=== PATIENT | female | born 1965 | race Caucasian/White ===

== ENCOUNTER → 2016-09-12 | Outpatient (REF) | payer BC ==
[~2016-09-12] MED LIST: BUPR75TA5 PO; CRES40TA PO; LEVO200T4 PO; WELC625T PO; venlafaxine OR
== END ==
LOC: M LAB REF 16:39
PROVIDERS: ATTEND Internal Medicine
DX: R50.9 Fever, unspecified (principal); J06.9 Acute upper respiratory infection, unspecified

== ENCOUNTER → 2016-10-19 | Outpatient (REF) | payer BC | LOC: M SFHCLERA 14:27 | PROVIDERS: ATTEND Physician Assistant | DX: R31.9 Hematuria, unspecified (principal) ==

== ENCOUNTER 2018-01-10 12:15 | Observation (INO) | payer BC ==
[2018-01-10 12:46] LABS: BASO # 0.1 10^3/uL (0.0-0.2); BASO % 0.7 % (0.0-1.0); EOS # 0.3 10^3/uL (0.0-0.50); EOS % 3.2 % (0.0-3.0); HEMATOCRIT 37.9 % (36.0-47.0); HEMOGLOBIN 12.9 g/dl (12.0-15.5); IMMATURE GRANULOCYTE % 0.2 % (0-3.0); LYMPH # 1.8 10^3/uL (1.5-4.5); LYMPH % 21.8 % (24.0-44.0); MEAN CORPUSCULAR HEMOGLOBIN 31.5 pg (27.0-33.0); MEAN CORPUSCULAR VOLUME 92.7 fl (80.0-96.0); MONO # 0.7 10^3/uL (0.0-0.8); MONO % 8.2 % (0.0-5.0); NEUTROPHILS # 5.3 10^3/uL (1.8-7.7); NEUTROPHILS % 65.9 % (36.0-66.0); PLATELET COUNT, AUTOMATED 206 10^3/uL (150-450); RED BLOOD COUNT 4.09 10^6/uL (4.00-5.40); RED CELL DISTRIBUTION WIDTH 12.8 % (11.5-14.5)
[2018-01-10] MEDS: ASPIRIN 81 MG CHEW TABLET PO (12:57)
[2018-01-10 12:58] LABS: PROTHROMBIN TIME 12.2 SECONDS (12.4-14.5)
[2018-01-10] MEDS: NITROGLYCERIN 0.4 MG SUBL TABLET SL (12:58)
[2018-01-10 12:59] LABS: PARTIAL THROMBOPLASTIN TIME 37.1 SECONDS (26.8-37.9)
[2018-01-10 13:06] LABS: ANION GAP 7 MEQ/L (8-16); BLOOD UREA NITROGEN 8 MG/DL (7-18); CALCIUM LEVEL 8.8 MG/DL (8.5-10.1); CARBON DIOXIDE LEVEL 28 MEQ/L (21-32); CHLORIDE LEVEL 109 MEQ/L (98-107); CPK CREATINE PHOSPHOKINASE 151 U/L (26-192); CREATININE FOR GFR 0.92 MG/DL (0.55-1.30); GLOMERULAR FILTRATION RATE > 60.0 (>51); GLUCOSE, FASTING 71 MG/DL (70-100); SODIUM LEVEL 144 MEQ/L (136-145); TROPONIN I < 0.02 NG/ML (< 0.10)
[2018-01-10] MEDS: NS 500 ML IV (13:11)
[2018-01-10 13:18] LABS: ALBUMIN 3.7 GM/DL (3.2-5.2); ALBUMIN/GLOBULIN RATIO 1.03 (1.00-1.93); ALKALINE PHOSPHATASE 87 U/L (45-117); ALT/SGPT 30 U/L (12-78); AST/SGOT 20 U/L (7-37); BILIRUBIN,DIRECT < 0.1 MG/DL (0.0-0.2); BILIRUBIN,TOTAL 0.2 MG/DL (0.2-1.0); CK-MB VALUE MASS 1.9 NG/ML (<3.6); LIPASE 141 U/L (73-393); MB/CK RELATIVE INDEX 1.25 (< OR =4); TOTAL PROTEIN 7.3 GM/DL (6.4-8.2)
[2018-01-10] MEDS ORDERED: ISOVUE-370 76% 100ML VIAL (Q9967) As Ordered (13:39)
[2018-01-10] MEDS: LORazepam 2 MG/ML VIAL (J2060) IV (15:55)
[2018-01-10] MEDS: GABAPENTIN 300 MG CAP PO ×2 (16:00→21:01)
[2018-01-10 16:27] LABS: CHOLESTEROL LEVEL 199 MG/DL (<200); CHOLESTEROL RISK RATIO 4.061 (<5); HDL CHOLESTEROL 49 MG/DL (>40); LDL CHOLESTEROL 108.8 MG/DL (<100); NON-HDL-C 150 MG/DL; TRIGLYCERIDES LEVEL 206 MG/DL (<150)
[2018-01-10 16:30] LABS: ESTIMATED AVERAGE GLUCOSE 114 MG/DL (60-110); HEMOGLOBIN A1c 5.6 %
[2018-01-10] MEDS: ACETAMINOPHEN 500 MG TAB PO (20:01)
[2018-01-10 20:18] LABS: TROPONIN I < 0.02 NG/ML (< 0.10)
[2018-01-10] MEDS: ROSUVASTATIN 10 MG TAB (CRESTOR) PO (21:01)
[2018-01-10] MEDS: HEPARIN SOD (PORCINE) 5000 UNITS/ML VIAL SC (21:01)
[2018-01-11 00:44] LABS: TROPONIN I < 0.02 NG/ML (< 0.10)
[2018-01-11] MEDS: ONDANSETRON 4MG/2ML VIAL (J2405) IV (01:44)
[2018-01-11] MEDS: LEVOTHYROXINE 125MCG TABLET (0.125MG) PO (06:13)
[2018-01-11] MEDS: HEPARIN SOD (PORCINE) 5000 UNITS/ML VIAL SC (06:13)
[2018-01-11] MEDS: SUMAtriptan SUCCINATE 25 MG TAB PO (06:13)
[2018-01-11] MEDS: LEVOTHYROXINE 50MCG TABLET (0.05MG) PO (06:13)
[2018-01-11 06:25] LABS: BASO # 0.1 10^3/uL (0.0-0.2); BASO % 0.9 % (0.0-1.0); EOS # 0.3 10^3/uL (0.0-0.50); EOS % 5.4 % (0.0-3.0); HEMATOCRIT 35.4 % (36.0-47.0); HEMOGLOBIN 11.8 g/dl (12.0-15.5); IMMATURE GRANULOCYTE % 0.4 % (0-3.0); LYMPH # 1.7 10^3/uL (1.5-4.5); LYMPH % 31.9 % (24.0-44.0); MEAN CORPUSCULAR HEMOGLOBIN 31.7 pg (27.0-33.0); MEAN CORPUSCULAR HGB CONC 33.3 g/dl (32.0-36.5); MEAN CORPUSCULAR VOLUME 95.2 fl (80.0-96.0); MONO # 0.4 10^3/uL (0.0-0.8); MONO % 8.2 % (0.0-5.0); NEUTROPHILS # 2.9 10^3/uL (1.8-7.7); NEUTROPHILS % 53.2 % (36.0-66.0); PLATELET COUNT, AUTOMATED 171 10^3/uL (150-450); RED BLOOD COUNT 3.72 10^6/uL (4.00-5.40); RED CELL DISTRIBUTION WIDTH 12.9 % (11.5-14.5); WHITE BLOOD COUNT 5.4 10^3/uL (4.0-10.0)
[2018-01-11 06:45] LABS: ALBUMIN/GLOBULIN RATIO 0.83 (1.00-1.93); ALKALINE PHOSPHATASE 74 U/L (45-117); ALT/SGPT 24 U/L (12-78); ANION GAP 7 MEQ/L (8-16); AST/SGOT 16 U/L (7-37); BILIRUBIN,TOTAL 0.2 MG/DL (0.2-1.0); BLOOD UREA NITROGEN 8 MG/DL (7-18); CALCIUM LEVEL 7.7 MG/DL (8.5-10.1); CARBON DIOXIDE LEVEL 28 MEQ/L (21-32); CHLORIDE LEVEL 108 MEQ/L (98-107); CREATININE FOR GFR 0.84 MG/DL (0.55-1.30); GLOMERULAR FILTRATION RATE > 60.0 (>51); GLUCOSE, FASTING 111 MG/DL (70-100); MAGNESIUM LEVEL 2.1 MG/DL (1.8-2.4); POTASSIUM SERUM 3.8 MEQ/L (3.5-5.1); SODIUM LEVEL 143 MEQ/L (136-145); TOTAL PROTEIN 6.6 GM/DL (6.4-8.2)
[2018-01-11] MEDS: MULTIVITAMINS/MINERALS THERAP 1 TAB PO (08:46)
[2018-01-11] MEDS: PANTOPRAZOLE 40MG TAB (PROTONIX) PO (08:46)
[2018-01-11] MEDS: MAGNESIUM OXIDE 400 MG TAB (MAG-OX) PO (08:46)
[2018-01-11] MEDS: COLESEVELAM 625 MG TAB (WELCHOL) PO (08:46)
[2018-01-11] MEDS: VENLAFAXINE **XR** 75MG CAPSULE PO (08:47)
[2018-01-11] MEDS: ACETAMINOPHEN 500 MG TAB PO (08:47)
[2018-01-11] MEDS: VITAMIN D 1,000 INTERNATIONAL UNITS TABLET PO (08:48)
[2018-01-11] MEDS: GABAPENTIN 300 MG CAP PO (08:48)
[2018-01-11] MEDS: buPROPion **XL** TABLET 150MG (WELLBUTRIN XL) PO (08:48)
== END 2018-01-11 11:24 | disposition home or self-care (01) ==
LOC: M ED 12:15 → M ED INP 15:53 → M MSPAV 18:21
PROVIDERS: Internal Medicine
DX: K21.9 Gastro-esophageal reflux disease without esophagitis (principal); R07.9 Chest pain, unspecified; G90.09 Other idiopathic peripheral autonomic neuropathy; M54.81 Occipital neuralgia; M54.2 Cervicalgia; E78.4 Other hyperlipidemia; F32.9 Major depressive disorder, single episode, unspecified; E03.9 Hypothyroidism, unspecified; M25.511 Pain in right shoulder; Z79.899 Other long term (current) drug therapy; Z88.8 Allergy status to other drugs, medicaments and biological substances; F17.210 Nicotine dependence, cigarettes, uncomplicated; F41.9 Anxiety disorder, unspecified
CPT/HCPCS: J2405

== ENCOUNTER → 2018-01-23 | Outpatient (CLI) | payer BC | LOC: M PAIN 13:00 | DX: Z53.8 Procedure and treatment not carried out for other reasons (principal) ==

== ENCOUNTER → 2018-02-05 | Outpatient (CLI) | payer BC ==
[~2018-02-05] MED LIST changes: -BUPR75TA5 PO; -CRES40TA PO; -LEVO200T4 PO; +LIDOCAINE 1% SDV INJ 30 ML VIAL As Ordered; +MIDAZOLAM INJ 2 MG/2 ML VIAL (J2250) As Ordered; -WELC625T PO; +fentaNYL 100 MCG/2 ML INJECTION (J3010) As Ordered; -venlafaxine OR
[2018-02-05 15:25] LABS: CSF RBC < 2 10^3/uL (<2)
[2018-02-05 15:26] LABS: APPEARANCE, CSF CLEAR (CLEAR); COLOR, CSF COLORLESS (COLORLESS); CSF DIFF IF INDICATED? NO (NO); CSF TUBE# CELL CNT TUBE 3; CSF WBC 7 /uL (0-10)
[2018-02-05 15:32] LABS: CSF TUBE# GLU TUBE 1; CSF TUBE# TP TUBE 1; GLUCOSE CSF 55 MG/DL (40-75); TOTAL PROTEIN,CSF 34.7 MG/DL (15-45)
[2018-02-10 00:07] LABS: IMMUNOGLOBULIN G CSF 2.2 mg/dL (0.0-8.6)
== END ==
LOC: M PAIN 12:00
DX: G37.9 Demyelinating disease of central nervous system, unspecified (principal); E78.5 Hyperlipidemia, unspecified; F32.9 Major depressive disorder, single episode, unspecified; E03.9 Hypothyroidism, unspecified; G35 Multiple sclerosis; K21.9 Gastro-esophageal reflux disease without esophagitis; F17.210 Nicotine dependence, cigarettes, uncomplicated; Z79.899 Other long term (current) drug therapy
CPT/HCPCS: J2250

== ENCOUNTER → 2018-06-09 | Outpatient (REF) | payer BC ==
[2018-06-09 13:01] LABS: BACTERIA, URINE AUTO NEGATIVE (NEGATIVE); MUCUS, URINE SMALL (NEGATIVE); RBC, URINE AUTO 3 /HPF (0-3); SQUAMOUS EPITHELIAL CELL UR AU 0 /HPF (0-6); WBC, URINE AUTO 1 /HPF (0-3)
== END ==
LOC: M LAB REF 11:50
DX: R31.9 Hematuria, unspecified (principal)
CPT/HCPCS: 81015

== ENCOUNTER → 2018-06-16 | Outpatient (REF) | payer BC, OTHER ==
[2018-06-16 12:34] LABS: APPEARANCE, URINE CLEAR (CLEAR); BACTERIA, URINE AUTO NEGATIVE (NEGATIVE); BILIRUBIN, URINE AUTO NEGATIVE (NEGATIVE); BLOOD, URINE BLOOD 1+ (NEGATIVE); COLOR, URINE YELLOW (YELLOW); GLUCOSE, URINE (UA) AUTO NEGATIVE (NEGATIVE); KETONE, URINE AUTO NEGATIVE (NEGATIVE); LEUKOCYTE ESTERASE, URINE AUTO NEGATIVE (NEGATIVE); MUCUS, URINE SMALL (NEGATIVE); NITRITE, URINE AUTO NEGATIVE (NEGATIVE); PROTEIN, URINE AUTO NEGATIVE (NEGATIVE); RBC, URINE AUTO 1 /HPF (0-3); SPECIFIC GRAVITY URINE AUTO 1.008 (1.002-1.035); SQUAMOUS EPITHELIAL CELL UR AU 0 /HPF (0-6); UROBILINOGEN, URINE AUTO 0.2 mg/dL (0.0-2.0); WBC, URINE AUTO 0 /HPF (0-3)
== END ==
LOC: M LAB REF 12:00
DX: R31.9 Hematuria, unspecified (principal)
CPT/HCPCS: 81001

== ENCOUNTER → 2018-10-21 | Outpatient (REF) | payer MEDICAID, OTHER ==
[~2018-10-21] MED LIST changes: +B-2100TA PO; +BUPR1TAB53 PO; +BUPR75TA5 PO; +CITRTAB10 PO; +COLE625TAB PO; +CRES40TA PO; +EFFE150C2 PO; +GABA600T4 PO; +LEVO200T4 PO; -LIDOCAINE 1% SDV INJ 30 ML VIAL As Ordered; +MAGN400C PO; -MIDAZOLAM INJ 2 MG/2 ML VIAL (J2250) As Ordered; +PANT40TA3 PO; +SUMA25TA3 PO; +SYNT175T2 PO; +VITAD1000T PO; +VITMTA PO; -fentaNYL 100 MCG/2 ML INJECTION (J3010) As Ordered; +venlafaxine OR
[2018-10-21 18:02] LABS: INFLUENZA A AMPLIFICATION POSITIVE (NEGATIVE); INFLUENZA B AMPLIFICATION NEGATIVE (NEGATIVE)
[2018-10-22 10:28] LABS: RUBELLA IgG QUALITATIVE IMMUNE (IMMUNE)
[2018-10-23 08:06] LABS: RUBEOLA IgG ANTIBODY <25.0 AU/mL (Immune >29.9)
== END ==
LOC: M LAB REF 16:37
PROVIDERS: ATTEND Internal Medicine
DX: Z02.1 Encounter for pre-employment examination (principal); R05 Cough; N39.0 Urinary tract infection, site not specified

== ENCOUNTER → 2019-11-10 | Outpatient (REF) | payer OTHER ==
[~2019-11-10] MED LIST changes: +CHOL100029 PO; -VITAD1000T PO
== END ==
LOC: M LAB REF 17:01
PROVIDERS: ATTEND Internal Medicine
DX: R51 Headache (principal)

== ENCOUNTER → 2019-11-29 | Outpatient (REF) | payer OTHER | LOC: M LAB REF 12:35 | PROVIDERS: ATTEND Physician Assistant | DX: R30.0 Dysuria (principal) ==

== ENCOUNTER → 2019-11-30 | Outpatient (CLI) | payer OTHER ==
--- NOTE | 2019-11-30 15:11 | REP ---
Duplex extremity venous ultrasound: Left lower extremity. History: Pain in the left lower leg. Rule out DVT. Findings: The deep veins are anechoic and fully compressible from the groin to the popliteal fossa in the left lower extremity. Color flow imaging is homogeneous. Spectral Doppler interrogation demonstrates intact respiratory variation in flow and normal manual augmentation of flow. There is no evidence of deep vein thrombosis. Scanning in the area of the palpable abnormality in the left calf demonstrates a patent superficial system varicosities. Impression: Patent superficial varicosities in the left calf corresponding to the palpable area of concern. Otherwise negative left lower extremity duplex venous ultrasound. No evidence of deep vein thrombosis. Electronically Signed by Hayder Hahn MD 11/30/2019 03:03 P
== END ==
LOC: M RAD 14:20
PROVIDERS: ATTEND Physician Assistant
DX: M79.662 Pain in left lower leg (principal)

== ENCOUNTER → 2020-01-06 | Outpatient (REF) | payer OTHER ==
[~2020-01-06] MED LIST changes: +ACET160S3 PO; +ASPI81TA85 PO; +DEPA250T32 PO; +EZET10TA21 PO; +VITA500C24 PO
== END ==
LOC: M LAB REF 16:57
PROVIDERS: ATTEND Internal Medicine
DX: R51 Headache (principal)

== ENCOUNTER → 2020-01-18 | Outpatient (CLI) | payer OTHER | LOC: M LABSMTC 09:50 | PROVIDERS: ATTEND Anesthesiology | DX: Z01.818 Encounter for other preprocedural examination (principal); Z11.59 Encounter for screening for other viral diseases | CPT/HCPCS: C9803; U0003 ==

== ENCOUNTER 2020-01-21 07:25 | Day surgery (SDC) | payer OTHER ==
[~2020-01-21] VITALS: Ht 172.7 cm; Wt 47.6 kg
[~2020-01-21 07:25] MED LIST changes: -ASPI81TA85 PO; +ASPI81TA86 PO; +LIDOCAINE 2% MDV 20ML VIAL As Ordered ONE; +NS 1,000 ML IV ONE; +PANT40TA29 PO; -PANT40TA3 PO; +propofoL 200 MG/20 ML VIAL As Ordered ONE
[2020-01-21] MEDS ORDERED: fentaNYL 100 MCG/2 ML INJECTION (J3010) As Ordered ONE (08:49)
[2020-01-21] MEDS ORDERED: PHENYLephrine HCL 500 MCG/5 ML (100MCG/ML) SYRINGE (J2370) As Ordered ONE (09:13)
[2020-01-21] MEDS ORDERED: ePHEDrine SULFATE 25 MG/5 ML(5MG/ML) SYRINGE As Ordered ONE (09:13)
--- NOTE | 2020-01-21 10:02 | ROOR ---
Patient Name: Poncho Gomez Procedure Date: 01/21/2020 9:04 AM Date of : 1965 Age: 54 Room: [facility] Gender: Female Note Status: Finalized Procedure: Upper GI endoscopy Indications: Weight loss Providers: Curly Borrero MD Referring MD: Nat CHURCH MD Requesting Provider: Medicines: Monitored Anesthesia Care Complications: No immediate complications. Procedure: Pre-Anesthesia Assessment: - Prior to the procedure, a History and Physical was performed, and patient medications and allergies were reviewed. The patient is competent. The risks and benefits of the procedure and the sedation options and risks were discussed with the patient. All questions were answered and informed consent was obtained. Patient identification and proposed procedure were verified by the physician, the nurse and the spear fisher in the procedure room. Mental Status Examination: alert and oriented. Airway Examination: normal oropharyngeal airway and neck mobility. CV Examination: regular rate and rhythm. Prophylactic Antibiotics: The patient does not require prophylactic antibiotics. Prior Anticoagulants: The patient has taken no previous anticoagulant or antiplatelet agents. ASA Grade Assessment: II - A patient with mild systemic disease. After reviewing the risks and benefits, the patient was deemed in satisfactory condition to undergo the procedure. The anesthesia plan was to use monitored anesthesia care (MAC). Immediately prior to administration of medications, the patient was re-assessed for adequacy to receive sedatives. The heart rate, respiratory rate, oxygen saturations, blood pressure, adequacy of pulmonary ventilation, and response to care were monitored throughout the procedure. The physical status of the patient was re-assessed after the procedure. The Endoscope was introduced through the mouth, and advanced to the second part of duodenum. The upper GI endoscopy was accomplished without difficulty. The patient tolerated the procedure well. Findings: The examined esophagus was normal. The entire examined stomach was normal. The examined duodenum was normal. Impression: - Normal esophagus. - Normal stomach. - Normal examined duodenum. - No specimens collected. Recommendation: - Discharge patient to home. - Resume previous diet. - Continue present medications. Curly Borrero MD Curly Borrero MD 01/21/2020 10:01:53 AM Electronically signed by Curly Borrero MD Number of Addenda: 0 Note Initiated On: 01/21/2020 9:04 AM Estimated Blood Loss: Estimated blood loss: none.
--- NOTE | 2020-01-21 10:08 | ROOR ---
Patient Name: Poncho Gomez Procedure Date: 01/21/2020 9:05 AM Date of : 1965 Age: 54 Room: [facility] Gender: Female Note Status: Finalized Procedure: Colonoscopy Indications: Family history of colon cancer, Lower abdominal pain, Weight loss Providers: Curly Borrero MD Referring MD: Nat CHURCH MD Requesting Provider: Medicines: Monitored Anesthesia Care Complications: No immediate complications. Procedure: Pre-Anesthesia Assessment: - Prior to the procedure, a History and Physical was performed, and patient medications and allergies were reviewed. The patient is competent. The risks and benefits of the procedure and the sedation options and risks were discussed with the patient. All questions were answered and informed consent was obtained. Patient identification and proposed procedure were verified by the physician, the nurse and the client project coordinator in the procedure room. Mental Status Examination: alert and oriented. CV Examination: regular rate and rhythm. Prophylactic Antibiotics: The patient does not require prophylactic antibiotics. Prior Anticoagulants: The patient has taken no previous anticoagulant or antiplatelet agents. ASA Grade Assessment: II - A patient with mild systemic disease. After reviewing the risks and benefits, the patient was deemed in satisfactory condition to undergo the procedure. The anesthesia plan was to use monitored anesthesia care (MAC). Immediately prior to administration of medications, the patient was re-assessed for adequacy to receive sedatives. The heart rate, respiratory rate, oxygen saturations, blood pressure, adequacy of pulmonary ventilation, and response to care were monitored throughout the procedure. The physical status of the patient was re-assessed after the procedure. The Colonoscope was introduced through the anus and advanced to the cecum, identified by the appendiceal orifice. The colonoscopy was somewhat difficult due to a redundant colon. The patient tolerated the procedure well. The quality of the bowel preparation was excellent. Findings: The perianal and digital rectal examinations were normal. A 8 mm polyp was found at 25 cm proximal to the anus. The polyp was sessile. The polyp was removed with a hot snare. Resection and retrieval were complete. A few small-mouthed diverticula were found in the sigmoid colon. Impression: - One 8 mm polyp at 25 cm proximal to the anus, removed with a hot snare. Resected and retrieved. - Diverticulosis in the sigmoid colon. Recommendation: - Discharge patient to home. - Resume previous diet. - Continue present medications. - Await pathology results. - If the pathology report reveals adenomatous tissue, then repeat the colonoscopy for surveillance in 5 years. Curly Borrero MD Curly Borrero MD 01/21/2020 10:07:36 AM Electronically signed by Curly Borrero MD Number of Addenda: 0 Note Initiated On: 01/21/2020 9:05 AM Estimated Blood Loss: Estimated blood loss: none.
[2020-01-21 10:20] VITALS: BP 117/58
== END 2020-01-21 10:40 | disposition home or self-care (01) ==
LOC: M OPP 07:25
PROVIDERS: ATTEND Surgery
DX: Q43.8 Other specified congenital malformations of intestine (principal); K63.5 Polyp of colon; K57.30 Diverticulosis of large intestine without perforation or abscess without bleeding; R63.4 Abnormal weight loss; R10.30 Lower abdominal pain, unspecified; Z79.82 Long term (current) use of aspirin; Z79.899 Other long term (current) drug therapy; Z88.8 Allergy status to other drugs, medicaments and biological substances; Z87.891 Personal history of nicotine dependence
CPT/HCPCS: 43235; 45385; 88305; J2370; J3010

== ENCOUNTER → 2020-02-19 | Outpatient (CLI) | payer OTHER ==
[~2020-02-19] MED LIST changes: -LIDOCAINE 2% MDV 20ML VIAL As Ordered ONE; -NS 1,000 ML IV ONE; -propofoL 200 MG/20 ML VIAL As Ordered ONE
== END ==
LOC: M LABSMTC 11:30
PROVIDERS: ATTEND Orthopaedic Surgery
DX: Z11.59 Encounter for screening for other viral diseases (principal); Z20.828 Contact with and (suspected) exposure to other viral communicable diseases

== ENCOUNTER → 2020-05-04 | Outpatient (REF) | payer OTHER | LOC: M LAB REF 16:20 | PROVIDERS: ATTEND Internal Medicine | DX: Z47.89 Encounter for other orthopedic aftercare (principal) ==

== ENCOUNTER → 2020-07-08 | Outpatient (CLI) | payer OTHER | LOC: M LABSMTC 13:02 | PROVIDERS: ATTEND Family Medicine | DX: Z20.828 Contact with and (suspected) exposure to other viral communicable diseases (principal) ==

== ENCOUNTER → 2020-07-19 | Outpatient (CLI) | payer SELFPAY | LOC: M LABSMTC 12:28 | PROVIDERS: ATTEND Pediatrics | DX: Z20.828 Contact with and (suspected) exposure to other viral communicable diseases (principal) ==

== ENCOUNTER → 2020-08-15 | Outpatient (REF) | payer OTHER ==
[2020-08-16 13:52] LABS: PERCENT SATURATION 24.6 % (13.2-45.0)
== END ==
LOC: M LAB REF 12:32
PROVIDERS: ATTEND Internal Medicine
DX: D64.9 Anemia, unspecified (principal)

== ENCOUNTER → 2020-09-14 | Outpatient (CLI) | payer OTHER | LOC: M LABSMTC 13:35 | PROVIDERS: ATTEND Family Medicine | DX: Z11.52 Encounter for screening for COVID-19 (principal) ==

== ENCOUNTER → 2020-10-02 | Outpatient (REF) | payer OTHER | LOC: M LAB REF 18:46 | PROVIDERS: ATTEND Physician Assistant | DX: N39.0 Urinary tract infection, site not specified (principal) ==

== ENCOUNTER → 2020-11-16 | Outpatient (REF) | payer OTHER | LOC: M WUC 15:52 | PROVIDERS: ATTEND Physician Assistant | DX: N39.0 Urinary tract infection, site not specified (principal) ==

== ENCOUNTER → 2020-11-24 | Outpatient (REF) | payer OTHER | LOC: M LAB REF 15:42 | PROVIDERS: ATTEND Physician Assistant | DX: N39.0 Urinary tract infection, site not specified (principal) ==

== ENCOUNTER → 2020-12-13 | Outpatient (CLI) | payer OTHER ==
[~2020-12-13] MED LIST changes: +E-Z-GAS II EFFERVESCENT PACKET (SODIUM BICARB./CITRIC ACID/SIMETHICONE) As Ordered ONE; +E-Z-HD 98% w/w 340GM SUSP BTL As Ordered ONE; +E-Z-PAQUE 96% w/w SUSP 176GM BTL As Ordered ONE
--- NOTE | 2020-12-13 17:07 | REP ---
INDICATION: CHRONIC COUGH. COMPARISON: None TECHNIQUE: This procedure was performed by Rebekah Dickerson, [facility], under the direct supervision of Dr. Hahn. Images were reviewed with Dr. Hahn prior to dictation. Liquid barium and gas producing crystals were given in the erect position, as well as liquid barium in the prone oblique position in order to perform a double contrast esophagram examination. FINDINGS: A single view PA chest x-ray is submitted as a inner layer scrubber tender film. The superior mediastinal structures are midline. The heart size is within normal limits. The lungs are clear. The oral and pharyngeal stages of deglutition were unremarkable. Esophageal transport is prompt and efficient and there is no evidence of esophagitis, stricture, or mucosal ring. There is no evidence of a hiatal hernia. There was no gastroesophageal reflux noted . IMPRESSION: Unremarkable esophagram. 0.2 minutes of fluoroscopy time was utilized for this procedure. Some fluoroscopic images are performed with last image hold technology. These images require no additional radiation. <Electronically signed by Rebekah Dickerson > 12/13/20 1610 <Electronically signed by Dariel Hahn > 12/13/20 1706
== END ==
LOC: M RAD 10:22
PROVIDERS: ATTEND Specialist
DX: R05 Cough (principal)

== ENCOUNTER → 2020-12-20 | Outpatient (REF) | payer OTHER ==
[~2020-12-20] MED LIST changes: -E-Z-GAS II EFFERVESCENT PACKET (SODIUM BICARB./CITRIC ACID/SIMETHICONE) As Ordered ONE; -E-Z-HD 98% w/w 340GM SUSP BTL As Ordered ONE; -E-Z-PAQUE 96% w/w SUSP 176GM BTL As Ordered ONE
== END ==
LOC: M WUC 22:14
PROVIDERS: ATTEND Nurse Practitioner Family
DX: R30.0 Dysuria (principal)

== ENCOUNTER → 2021-02-14 | Outpatient (CLI) | payer OTHER ==
--- NOTE | 2021-02-14 14:25 | REP ---
INDICATION: FREQUENT UTI'S. COMPARISON: None. TECHNIQUE: Transvesical ultrasound FINDINGS: The pre void urinary bladder volume calculation is 945 cc and the postvoid urinary bladder volume calculation is 24 cc. This renders a 3% postvoid residual. No masses were identified. IMPRESSION: As above <Electronically signed by Pedro Biswas > 02/14/21 [id number]
--- NOTE | 2021-02-14 15:08 | REP ---
INDICATION: FREQUENT UTI'S. COMPARISON: None. FINDINGS: Multiple ultrasonographic images of the right kidney show the right kidney to measure 9.6 x 5.4 x 5.4 cm. The renal cortical echotexture is unremarkable. There are no masses. There is good corticomedullary differentiation. There is no hydronephrosis. There are no perinephric fluid collections. Multiple ultrasonographic images of the left kidney show the left kidney to measure 10.3 x 5 x 4.7 cm. The renal cortical echotexture is unremarkable. There are no masses. There is good corticomedullary differentiation. There is no hydronephrosis. There are no perinephric fluid collections. IMPRESSION: Unremarkable renal ultrasonography. <Electronically signed by Pedro Biswas > 02/14/21 1795
== END ==
LOC: M RAD 13:39
PROVIDERS: ATTEND Nurse Practitioner Family
DX: N39.0 Urinary tract infection, site not specified (principal)

== ENCOUNTER → 2021-02-21 | Outpatient (REF) | payer OTHER ==
[2021-02-21 20:27] LABS: APPEARANCE, URINE TURBID (CLEAR); BACTERIA, URINE AUTO 1+ (NEGATIVE); BILIRUBIN, URINE AUTO NEGATIVE (NEGATIVE); BLOOD, URINE BLOOD 2+ (NEGATIVE); COLOR, URINE AMBER (YELLOW); GLUCOSE, URINE (UA) AUTO NEGATIVE (NEGATIVE); KETONE, URINE AUTO NEGATIVE (NEGATIVE); LEUKOCYTE ESTERASE, URINE AUTO 3+ (NEGATIVE); MUCUS, URINE SMALL (NEGATIVE); NITRITE, URINE AUTO POSITIVE (NEGATIVE); PROTEIN, URINE AUTO 2+ mg/dL (NEGATIVE); RBC, URINE AUTO 33 /HPF (0-3); SPECIFIC GRAVITY URINE AUTO 1.018 (1.002-1.035); SQUAMOUS EPITHELIAL CELL UR AU 4 /HPF (0-6); UROBILINOGEN, URINE AUTO 0.2 mg/dL (0.0-2.0); WBC, URINE AUTO TNTC /HPF (0-3)
== END ==
LOC: M SMT 17:14
PROVIDERS: ATTEND Nurse Practitioner Family
DX: N39.0 Urinary tract infection, site not specified (principal)

== ENCOUNTER → 2021-02-27 | Outpatient (REF) | payer OTHER ==
[2021-02-27 15:48] LABS: PERCENT SATURATION 33.8 % (13.2-45.0)
== END ==
LOC: M LAB REF 15:03
PROVIDERS: ATTEND Internal Medicine
DX: D64.9 Anemia, unspecified (principal)

== ENCOUNTER → 2021-03-14 | Outpatient (REF) | payer OTHER | LOC: M SMT 12:57 | PROVIDERS: ATTEND Urology | DX: Z87.440 Personal history of urinary (tract) infections (principal); Z09 Encounter for follow-up examination after completed treatment for conditions other than malignant neoplasm ==

== ENCOUNTER → 2021-10-04 | Outpatient (REF) | payer OTHER ==
[2021-10-04 13:51] LABS: APPEARANCE, URINE HAZY (CLEAR); BACTERIA, URINE AUTO 1+ (NEGATIVE); BILIRUBIN, URINE AUTO NEGATIVE (NEGATIVE); BLOOD, URINE BLOOD NEGATIVE (NEGATIVE); COLOR, URINE YELLOW (YELLOW); GLUCOSE, URINE (UA) AUTO NEGATIVE (NEGATIVE); KETONE, URINE AUTO NEGATIVE (NEGATIVE); LEUKOCYTE ESTERASE, URINE AUTO 3+ (NEGATIVE); MUCUS, URINE SMALL (NEGATIVE); NITRITE, URINE AUTO NEGATIVE (NEGATIVE); PROTEIN, URINE AUTO NEGATIVE (NEGATIVE); RBC, URINE AUTO 13 /HPF (0-3); SPECIFIC GRAVITY URINE AUTO 1.009 (1.002-1.035); SQUAMOUS EPITHELIAL CELL UR AU 0 /HPF (0-6); UROBILINOGEN, URINE AUTO 0.2 mg/dL (0.0-2.0); WBC, URINE AUTO 80 /HPF (0-3)
== END ==
LOC: M SMT 12:50
PROVIDERS: ATTEND Urology
DX: N39.0 Urinary tract infection, site not specified (principal)

== ENCOUNTER 2021-11-19 14:50 | Emergency (ER) | payer OTHER, MEDICAID ==
[~2021-11-19] VITALS: Ht 172.7 cm; Wt 55.6 kg
[2021-11-19] MEDS ORDERED: IBUP200T46 PO (15:01)
[2021-11-19] MEDS ORDERED: BOOSTRIX/ADACEL VACCINE (DIPHTH/PERTUSS/ACELL/TETANUS) 0.5ML SYR IM ONE (17:05)
[2021-11-19] MEDS ORDERED: KETOROLAC TROMETHAMINE 10 MG TAB PO ONE (17:05)
[2021-11-19 17:35] VITALS: BP 139/68
== END 2021-11-19 17:53 | disposition home or self-care (01) ==
LOC: M ED 14:50
DX: S01.01XA Laceration without foreign body of scalp, initial encounter (principal); W22.8XXA Striking against or struck by other objects, initial encounter; Y92.9 Unspecified place or not applicable; Y93.9 Activity, unspecified; Y99.0 Civilian activity done for income or pay; I67.9 Cerebrovascular disease, unspecified; I10 Essential (primary) hypertension; E78.5 Hyperlipidemia, unspecified; G43.909 Migraine, unspecified, not intractable, without status migrainosus; G47.33 Obstructive sleep apnea (adult) (pediatric); E03.9 Hypothyroidism, unspecified; F41.9 Anxiety disorder, unspecified; F32.A Depression, unspecified; Z88.8 Allergy status to other drugs, medicaments and biological substances; Z79.899 Other long term (current) drug therapy; Z79.890 Hormone replacement therapy; Z23 Encounter for immunization

== ENCOUNTER → 2022-01-01 | Outpatient (CLI) | payer OTHER ==
[~2022-01-01] MED LIST changes: +IBUP200T46 PO
== END ==
LOC: M WUC 13:22
PROVIDERS: ATTEND Internal Medicine
DX: M79.642 Pain in left hand (principal); M19.031 Primary osteoarthritis, right wrist; M19.041 Primary osteoarthritis, right hand

== ENCOUNTER → 2022-01-03 | Outpatient (REF) | payer OTHER ==
[2022-01-03 13:45] LABS: APPEARANCE, URINE HAZY (CLEAR); BACTERIA, URINE AUTO NEGATIVE (NEGATIVE); BILIRUBIN, URINE AUTO NEGATIVE (NEGATIVE); BLOOD, URINE BLOOD NEGATIVE (NEGATIVE); COLOR, URINE AMBER (YELLOW); GLUCOSE, URINE (UA) AUTO NEGATIVE (NEGATIVE); KETONE, URINE AUTO NEGATIVE (NEGATIVE); LEUKOCYTE ESTERASE, URINE AUTO NEGATIVE (NEGATIVE); MUCUS, URINE SMALL (NEGATIVE); NITRITE, URINE AUTO NEGATIVE (NEGATIVE); PROTEIN, URINE AUTO NEGATIVE (NEGATIVE); RBC, URINE AUTO 1 /HPF (0-3); SPECIFIC GRAVITY URINE AUTO 1.019 (1.002-1.035); SQUAMOUS EPITHELIAL CELL UR AU 1 /HPF (0-6); UROBILINOGEN, URINE AUTO 0.2 mg/dL (0.0-2.0); WBC, URINE AUTO 1 /HPF (0-3)
== END ==
LOC: M SMT 12:42
PROVIDERS: ATTEND Urology
DX: Z87.440 Personal history of urinary (tract) infections (principal)

== ENCOUNTER → 2022-10-05 | Outpatient (REF) | payer OTHER, MEDICAID ==
[~2022-10-05] MED LIST changes: +COLE625T17 PO; -COLE625TAB PO
[2022-10-05 13:51] LABS: APPEARANCE, URINE HAZY (CLEAR); BACTERIA, URINE AUTO 1+ (NEGATIVE); BILIRUBIN, URINE AUTO NEGATIVE (NEGATIVE); BLOOD, URINE BLOOD NEGATIVE (NEGATIVE); COLOR, URINE YELLOW (YELLOW); GLUCOSE, URINE (UA) AUTO NEGATIVE (NEGATIVE); KETONE, URINE AUTO NEGATIVE (NEGATIVE); LEUKOCYTE ESTERASE, URINE AUTO 2+ (NEGATIVE); MUCUS, URINE SMALL (NEGATIVE); NITRITE, URINE AUTO NEGATIVE (NEGATIVE); PROTEIN, URINE AUTO NEGATIVE (NEGATIVE); RBC, URINE AUTO 6 /HPF (0-3); SPECIFIC GRAVITY URINE AUTO 1.023 (1.002-1.035); SQUAMOUS EPITHELIAL CELL UR AU 1 /HPF (0-6); UROBILINOGEN, URINE AUTO 0.2 mg/dL (0.0-2.0); WBC, URINE AUTO 27 /HPF (0-3)
== END ==
LOC: M SMT 13:01
PROVIDERS: ATTEND Urology
DX: Z87.440 Personal history of urinary (tract) infections (principal)

== ENCOUNTER → 2022-12-14 | Outpatient (REF) | payer MEDICAID ==
[2022-12-14 17:47] LABS: BASO # 0.1 10^3/uL (0.0-0.2); EOS # 0.2 10^3/uL (0.0-0.5); EOS % 4.1 % (0.0-3.0); HEMATOCRIT 37.2 % (36.0-47.0); HEMOGLOBIN 11.7 g/dl (12.0-15.5); LYMPH # 1.3 10^3/uL (1.5-5.0); LYMPH % 25.1 % (24.0-44.0); MEAN CORPUSCULAR HEMOGLOBIN 31.2 pg (27.0-33.0); MEAN CORPUSCULAR HGB CONC 31.5 g/dl (32.0-36.5); MEAN CORPUSCULAR VOLUME 99.2 fl (80.0-96.0); MONO # 0.5 10^3/uL (0.0-0.8); MONO % 10.2 % (2.0-8.0); NEUTROPHILS % 59.4 % (36.0-66.0); PLATELET COUNT, AUTOMATED 163 10^3/uL (150-450); RED BLOOD COUNT 3.75 10^6/uL (4.00-5.40); WHITE BLOOD COUNT 5.1 10^3/uL (4.0-10.0)
[2022-12-14 17:58] LABS: ERYTHROCYTE SEDIMENTATION RATE 10 mm/hr (0-30)
[2022-12-14 18:10] LABS: URIC ACID 4.2 MG/DL (3.1-7.8)
[2022-12-14 18:11] LABS: C REACTIVE PROTEIN QUANTITATIV < 0.40 MG/DL (<1.0)
[2022-12-14 18:13] LABS: RHEUMATOID FACTOR QUANT < 3.5 IU/ML (<14)
[2022-12-18 14:07] LABS: ANTINUCLEAR ANTIBODIES DIRECT Negative (Negative)
== END ==
LOC: M LAB REF 16:37
PROVIDERS: ATTEND Internal Medicine
DX: M19.041 Primary osteoarthritis, right hand (principal); M25.541 Pain in joints of right hand

== ENCOUNTER → 2023-01-08 | Outpatient (REF) | payer MEDICAID ==
[2023-01-08 18:29] LABS: BASO % 0.4 % (0.0-1.0); EOS # 0.2 10^3/uL (0.0-0.5); EOS % 2.8 % (0.0-3.0); HEMATOCRIT 35.6 % (36.0-47.0); LYMPH % 29.8 % (24.0-44.0); MEAN CORPUSCULAR HEMOGLOBIN 30.8 pg (27.0-33.0); MEAN CORPUSCULAR HGB CONC 30.9 g/dl (32.0-36.5); MEAN CORPUSCULAR VOLUME 99.7 fl (80.0-96.0); MONO # 0.5 10^3/uL (0.0-0.8); MONO % 7.8 % (2.0-8.0); NEUTROPHILS % 58.6 % (36.0-66.0); PLATELET COUNT, AUTOMATED 360 10^3/uL (150-450); RED BLOOD COUNT 3.57 10^6/uL (4.00-5.40); WHITE BLOOD COUNT 6.8 10^3/uL (4.0-10.0)
[2023-01-08 18:53] LABS: MAGNESIUM LEVEL 2.1 MG/DL (1.8-2.4)
[2023-01-08 18:58] LABS: THYROID STIMULATING HORMONE 0.168 uIU/ML (0.55-4.78)
[2023-01-09 12:59] LABS: FERRITIN 80.7 NG/ML (7.3-270.7)
== END ==
LOC: M LAB REF 17:46
PROVIDERS: ATTEND Internal Medicine
DX: Z00.00 Encounter for general adult medical examination without abnormal findings (principal); E03.9 Hypothyroidism, unspecified; M25.541 Pain in joints of right hand; D64.9 Anemia, unspecified

== ENCOUNTER 2023-03-24 17:25 | Emergency (ER) | payer OTHER ==
[~2023-03-24] VITALS: Ht 172.7 cm; Wt 58.2 kg
[2023-03-24] MEDS ORDERED: LIDOCAINE W/EPINEPHRINE 1% 20ML VIAL SC ONE (19:10)
[2023-03-24] MEDS ORDERED: ONDA4TAB6 PO (20:07)
[2023-03-24] MEDS ORDERED: IBUP-1022 PO (20:07)
[2023-03-24 20:29] VITALS: BP 146/82; TEMP 97.4; O2SAT 99
== END 2023-03-24 20:30 | disposition home or self-care (01) ==
LOC: M ED 17:25
DX: S01.81XA Laceration without foreign body of other part of head, initial encounter (principal); S06.0X0A Concussion without loss of consciousness, initial encounter; W01.0XXA Fall on same level from slipping, tripping and stumbling without subsequent striking against object, initial encounter; I10 Essential (primary) hypertension; G47.30 Sleep apnea, unspecified; E03.9 Hypothyroidism, unspecified; Y99.0 Civilian activity done for income or pay; Z88.8 Allergy status to other drugs, medicaments and biological substances; Z79.83 Long term (current) use of bisphosphonates; Z79.810 Long term (current) use of selective estrogen receptor modulators (SERMs); Z79.899 Other long term (current) drug therapy

== ENCOUNTER → 2023-04-23 | Outpatient (REF) | payer OTHER ==
[~2023-04-23] MED LIST changes: +IBUP-1022 PO; +ONDA4TAB6 PO
[2023-04-23 13:47] LABS: APPEARANCE, URINE CLOUDY (CLEAR); BACTERIA, URINE AUTO NEGATIVE (NEGATIVE); BILIRUBIN, URINE AUTO NEGATIVE (NEGATIVE); BLOOD, URINE BLOOD NEGATIVE (NEGATIVE); COLOR, URINE YELLOW (YELLOW); GLUCOSE, URINE (UA) AUTO NEGATIVE (NEGATIVE); KETONE, URINE AUTO TRACE mg/dL (NEGATIVE); LEUKOCYTE ESTERASE, URINE AUTO 3+ (NEGATIVE); NITRITE, URINE AUTO NEGATIVE (NEGATIVE); PROTEIN, URINE AUTO 1+ mg/dL (NEGATIVE); RBC, URINE AUTO 6 /HPF (0-3); SQUAMOUS EPITHELIAL CELL UR AU 1 /HPF (0-6); UROBILINOGEN, URINE AUTO 0.2 mg/dL (0.0-2.0); WBC, URINE AUTO TNTC /HPF (0-3)
== END ==
LOC: M LABSMT 11:21
PROVIDERS: ATTEND Urology
DX: Z87.440 Personal history of urinary (tract) infections (principal)

== ENCOUNTER → 2023-05-22 | Outpatient (REF) | payer OTHER ==
[2023-05-22 18:34] LABS: APPEARANCE, URINE HAZY (CLEAR); BACTERIA, URINE AUTO NEGATIVE (NEGATIVE); BILIRUBIN, URINE AUTO NEGATIVE (NEGATIVE); BLOOD, URINE BLOOD NEGATIVE (NEGATIVE); COLOR, URINE YELLOW (YELLOW); GLUCOSE, URINE (UA) AUTO NEGATIVE (NEGATIVE); KETONE, URINE AUTO TRACE mg/dL (NEGATIVE); LEUKOCYTE ESTERASE, URINE AUTO 3+ (NEGATIVE); MUCUS, URINE SMALL (NEGATIVE); NITRITE, URINE AUTO NEGATIVE (NEGATIVE); PROTEIN, URINE AUTO NEGATIVE (NEGATIVE); RBC, URINE AUTO 2 /HPF (0-3); SPECIFIC GRAVITY URINE AUTO 1.019 (1.002-1.035); SQUAMOUS EPITHELIAL CELL UR AU 0 /HPF (0-6); UROBILINOGEN, URINE AUTO 0.2 mg/dL (0.0-2.0); WBC, URINE AUTO 103 /HPF (0-3)
== END ==
LOC: M SMT 17:14
PROVIDERS: ATTEND Urology
DX: R30.0 Dysuria (principal)

== ENCOUNTER → 2023-11-12 | Outpatient (REF) | payer OTHER ==
[~2023-11-12] MED LIST changes: -EFFE150C2 PO; +EFFE150C3 PO
[2023-11-12 13:09] LABS: APPEARANCE, URINE CLOUDY (CLEAR); BACTERIA, URINE AUTO 2+ (NEGATIVE); BILIRUBIN, URINE AUTO NEGATIVE (NEGATIVE); BLOOD, URINE BLOOD 1+ (NEGATIVE); COLOR, URINE AMBER (YELLOW); GLUCOSE, URINE (UA) AUTO NEGATIVE (NEGATIVE); KETONE, URINE AUTO NEGATIVE (NEGATIVE); LEUKOCYTE ESTERASE, URINE AUTO 3+ (NEGATIVE); MUCUS, URINE SMALL (NEGATIVE); NITRITE, URINE AUTO POSITIVE (NEGATIVE); PROTEIN, URINE AUTO NEGATIVE (NEGATIVE); RBC, URINE AUTO 1 /HPF (0-3); SPECIFIC GRAVITY URINE AUTO 1.016 (1.002-1.035); SQUAMOUS EPITHELIAL CELL UR AU 1 /HPF (0-6); WBC, URINE AUTO TNTC /HPF (0-3)
== END ==
LOC: M LABSMT 10:58
PROVIDERS: ATTEND Urology
DX: Z87.440 Personal history of urinary (tract) infections (principal)

== ENCOUNTER → 2024-03-05 | Outpatient (CLI) | payer OTHER ==
[~2024-03-05] MED LIST changes: +GABA-1490 PO; -GABA600T4 PO; +ONDA-282 PO; -ONDA4TAB6 PO
== END ==
LOC: M PAIN 08:00
PROVIDERS: ATTEND Nurse Practitioner Family
DX: M54.16 Radiculopathy, lumbar region (principal); G89.29 Other chronic pain; E78.5 Hyperlipidemia, unspecified; F32.A Depression, unspecified; E03.9 Hypothyroidism, unspecified; G62.9 Polyneuropathy, unspecified; K21.9 Gastro-esophageal reflux disease without esophagitis; Z87.891 Personal history of nicotine dependence; Z79.890 Hormone replacement therapy; Z79.82 Long term (current) use of aspirin; Z79.899 Other long term (current) drug therapy; Z88.8 Allergy status to other drugs, medicaments and biological substances

== ENCOUNTER → 2024-03-19 | Outpatient (CLI) | payer OTHER | LOC: M PAIN 14:30 | PROVIDERS: ATTEND Nurse Practitioner Family | DX: M51.16 Intervertebral disc disorders with radiculopathy, lumbar region (principal); G89.29 Other chronic pain; E78.5 Hyperlipidemia, unspecified; F32.A Depression, unspecified; E03.9 Hypothyroidism, unspecified; G62.9 Polyneuropathy, unspecified; M25.511 Pain in right shoulder; M54.2 Cervicalgia; K21.9 Gastro-esophageal reflux disease without esophagitis; Z87.891 Personal history of nicotine dependence; Z79.890 Hormone replacement therapy; Z79.899 Other long term (current) drug therapy; Z88.8 Allergy status to other drugs, medicaments and biological substances ==

== ENCOUNTER → 2024-05-22 | Outpatient (CLI) | payer OTHER ==
[~2024-05-22] MED LIST changes: +ISOVUE-M 300 61% 15ML VIAL As Ordered ONE; +LIDOCAINE 1% SDV 30ML VIAL As Ordered ONE; +dexAMETHasone 10MG/1ML VIAL PRES.FREE As Ordered ONE; +diazePAM 5MG TABLET As Ordered ONE; +oxyCODONE 5MG TAB As Ordered ONE
== END ==
LOC: M PAIN 10:00
PROVIDERS: ATTEND Anesthesiology
DX: M51.16 Intervertebral disc disorders with radiculopathy, lumbar region (principal); G89.29 Other chronic pain; E78.5 Hyperlipidemia, unspecified; F32.A Depression, unspecified; E03.9 Hypothyroidism, unspecified; G62.9 Polyneuropathy, unspecified; K21.9 Gastro-esophageal reflux disease without esophagitis; M54.2 Cervicalgia; Z87.891 Personal history of nicotine dependence; Z79.890 Hormone replacement therapy; Z79.899 Other long term (current) drug therapy; Z88.8 Allergy status to other drugs, medicaments and biological substances
CPT/HCPCS: 62323; J1100; Q9967

== ENCOUNTER → 2024-06-30 | Outpatient (CLI) | payer OTHER ==
[~2024-06-30] MED LIST changes: -ISOVUE-M 300 61% 15ML VIAL As Ordered ONE; -LIDOCAINE 1% SDV 30ML VIAL As Ordered ONE; -dexAMETHasone 10MG/1ML VIAL PRES.FREE As Ordered ONE; -diazePAM 5MG TABLET As Ordered ONE; -oxyCODONE 5MG TAB As Ordered ONE
== END ==
LOC: M PAIN 09:15
PROVIDERS: ATTEND Nurse Practitioner Family
DX: M51.16 Intervertebral disc disorders with radiculopathy, lumbar region (principal); G89.29 Other chronic pain; E78.5 Hyperlipidemia, unspecified; F32.A Depression, unspecified; E03.9 Hypothyroidism, unspecified; G62.9 Polyneuropathy, unspecified; M25.511 Pain in right shoulder; M54.2 Cervicalgia; K21.9 Gastro-esophageal reflux disease without esophagitis; Z97.4 Presence of external hearing-aid; Z87.891 Personal history of nicotine dependence; Z79.890 Hormone replacement therapy; Z79.82 Long term (current) use of aspirin; Z79.899 Other long term (current) drug therapy; Z88.8 Allergy status to other drugs, medicaments and biological substances

== ENCOUNTER → 2024-10-16 | Outpatient (REF) | payer OTHER ==
[~2024-10-16] MED LIST changes: -CITRTAB10 PO; +CITRTAB11 PO
[2024-10-16 13:38] LABS: LIPASE 23 U/L (12-53)
[2024-10-16 13:40] LABS: C REACTIVE PROTEIN QUANTITATIV < 0.50 MG/DL (<1.0)
== END ==
LOC: M LAB REF 12:42
PROVIDERS: ATTEND Internal Medicine
DX: M19.90 Unspecified osteoarthritis, unspecified site (principal); R10.9 Unspecified abdominal pain; R53.83 Other fatigue

== ENCOUNTER → 2024-10-30 | Outpatient (CLI) | payer OTHER ==
[~2024-10-30] MED LIST changes: +ISOVUE-370 76% 100ML VIAL As Ordered ONE
== END ==
LOC: M RAD 16:49
PROVIDERS: ATTEND Internal Medicine
DX: K57.30 Diverticulosis of large intestine without perforation or abscess without bleeding (principal)
CPT/HCPCS: 74177; Q9967

== ENCOUNTER 2025-03-08 12:07 | Day surgery (SDC) | payer OTHER ==
[~2025-03-08] VITALS: Ht 172.7 cm; Wt 57.0 kg
[~2025-03-08 12:07] MED LIST changes: +ALBU8.5H; +BUPR-766 PO; +BUPR150T15 PO; -BUPR1TAB53 PO; -DEPA250T32 PO; +DIVA-41 PO; +DIVA-65 PO; +ECOT81TA5 PO; +FLUTISP; +GABA-1172 PO; -ISOVUE-370 76% 100ML VIAL As Ordered ONE; +LEVO112T2 PO; +LORA-1041 PO; +MULTTAB61 PO; +NORT10CA2 PO; +OMEP-173 PO; +RIZA10TA2 PO
[2025-03-08] MEDS ORDERED: LIDOCAINE 2% 100 MG/5 ML SDV (FOR ANES.) As Ordered ONE (13:19)
[2025-03-08 14:04] VITALS: BP 121/59; TEMP 97.7; O2SAT 97
== END 2025-03-08 14:24 | disposition home or self-care (01) ==
LOC: M OPP 12:07
PROVIDERS: ATTEND Surgery
DX: D12.6 Benign neoplasm of colon, unspecified (principal); K44.9 Diaphragmatic hernia without obstruction or gangrene; D50.9 Iron deficiency anemia, unspecified; G47.30 Sleep apnea, unspecified; Z88.8 Allergy status to other drugs, medicaments and biological substances; Z79.82 Long term (current) use of aspirin; Z79.51 Long term (current) use of inhaled steroids; Z79.899 Other long term (current) drug therapy
CPT/HCPCS: 43239; 45380; 88305; J3010